=== PATIENT | male | born 1970 | race Caucasian/White ===

== ENCOUNTER 2020-01-11 05:50 | Emergency (ER) | payer BC ==
[~2020-01-11] VITALS: Ht 177.8 cm; Wt 121.1 kg
[2020-01-11 06:00] VITALS: Ht 177.8 cm; Wt 121.1 kg
[2020-01-11 07:03] LABS: BASOPHIL % 0.7 % (0-2); PLATELET COUNT 146 x10^3mcL (130-400); RED CELL DISTRIBUTION WIDTH 12.8 % (11.5-14.5)
[2020-01-11 07:17] LABS: CALCIUM 8.6 mg/dL (8.5-10.1); CARBON DIOXIDE 20.8 mmol/L (21-32); CHLORIDE SERUM 102 mmol/L (98-107); GFR1 > 60 mL/min; GLUCOSE SERUM 109 mg/dL (74-106); POTASSIUM SERUM 3.6 mmol/L (3.5-5.1); SODIUM SERUM 138 mmol/L (136-145)
[2020-01-11 07:21] LABS: ALKALINE PHOSPHATASE 60 U/L (46-116); ALT/SGPT 64 U/L (16-63); AST/SGOT 32 U/L (15-37); BILIRUBIN TOTAL 0.8 mg/dL (0.20-1.00); TOTAL PROTEIN, SERUM 7.2 g/dL (6.4-8.2)
[2020-01-11 07:48] VITALS: BP 143/86
== END 2020-01-11 07:48 | disposition home or self-care (01) ==
LOC: ED 05:50
PROVIDERS: Emergency Medicine
DX: R07.89 Other chest pain (principal); E78.00 Pure hypercholesterolemia, unspecified; Z88.0 Allergy status to penicillin
CPT/HCPCS: Q0092